=== PATIENT | female | born 1975 | race Caucasian/White ===

== ENCOUNTER 2022-09-06 16:13 | Outpatient (CLI) | payer BC ==
[2022-09-06 16:49] LABS: BHCG - Serum Negative (NEGATIVE); Hemoglobin 13.8 g/dL (12.0-15.5); Mean Corpuscular HGB CONC 33.8 g/dL (32.0-36.0); Mean Corpuscular Hemoglobin 31.9 pg (27.0-33.0); Mean Corpuscular Volume 94.4 fl (81.6-98.3); Mean Platelet Volume 9.4 fl (7.4-10.4); Platelet Count 308 10x3/uL (150-450); Pregs Control Background? CLEAR/WHITE (CLR/WHITE); Pregs Control Bar Appear? YES (CONTROL BAR); Red Blood Cell (RBC) Count 4.32 10x6/uL (3.90-5.03)
== END 2022-09-06 16:14 | disposition home or self-care (01) ==
LOC: CSHLAB 16:13
PROVIDERS: ATTEND Student in an Organized Health Care Education/Training Program
DX: Z01.812 Encounter for preprocedural laboratory examination (principal); D25.9 Leiomyoma of uterus, unspecified; N92.0 Excessive and frequent menstruation with regular cycle
CPT/HCPCS: 84703; 85027; 86850; 86900; 86901

== ENCOUNTER 2022-09-10 08:24 | Day surgery (SDC) | payer BC ==
[2022-09-09 10:02] VITALS: BMI 24.9
[2022-09-10] MEDS ORDERED: PROPOFOL 20 ML ONE (08:41)
[2022-09-10] MEDS ORDERED: Rocuronium Bromide 10 MG/ML (10ML VIAL) ONE (08:42)
[2022-09-10] MEDS ORDERED: Dexamethasone 4 mg/ml Vial ONE (08:42)
[2022-09-10] MEDS ORDERED: Ondansetron PF 4 MG/2 ML Vial ONE (08:42)
[2022-09-10] MEDS ORDERED: Fentanyl 250 MCG/5 ML VIAL ONE (08:42)
[2022-09-10] MEDS ORDERED: Lidocaine 1% PF 5 ML VIAL ONE (08:42)
[2022-09-10] MEDS ORDERED: Promethazine HCl 25 MG/ML VIAL ONE (08:50)
[2022-09-10] MEDS ORDERED: CeleCOXIB 100 MG CAP ONE (08:53)
[2022-09-10] MEDS ORDERED: Gabapentin 300 MG CAP ONE (08:54)
[2022-09-10] MEDS ORDERED: Famotidine/PF 20 mg/2ml Vial ONE (08:54)
[2022-09-10] MEDS ORDERED: metroNIDAZOLE 500 MG/100 ML BAG ONE (09:46)
[2022-09-10] MEDS ORDERED: CEFAZOLIN 2 GM VIAL ONE (10:24)
[2022-09-10] MEDS ORDERED: Midazolam HCl 2 mg/2 ml Vial ONE (10:37)
[2022-09-10] MEDS ORDERED: ePHEDrine Sulfate 50 MG/10 ML VIAL ONE (11:01)
[2022-09-10] MEDS ORDERED: Glycopyrrolate 0.2 MG/ML 5 ML SYRINGE ONE (12:08)
[2022-09-10] MEDS ORDERED: Meperidine HCl/PF 25 MG/ML VIAL ONE (12:55)
[2022-09-10] MEDS ORDERED: Ketorolac Tromethamine 30 MG/ML VIAL ONE (12:55)
[2022-09-10] MEDS ORDERED: HYDROcodone/Acetaminophen 5/325 mg Tablet ONE (14:43)
== END 2022-09-10 16:25 | disposition home or self-care (01) ==
LOC: CSHSDC 08:24
PROVIDERS: ATTEND Student in an Organized Health Care Education/Training Program
PROC: 0UT1FZZ Resection of Left Ovary, Via Natural or Artificial Opening With Percutaneous Endoscopic Assistance (ICD-10-PCS; principal; 2022-09-10)
PROC: 0UT9FZZ Resection of Uterus, Via Natural or Artificial Opening With Percutaneous Endoscopic Assistance (ICD-10-PCS; principal; 2022-09-10)
PROC: 0UT7FZZ Resection of Bilateral Fallopian Tubes, Via Natural or Artificial Opening With Percutaneous Endoscopic Assistance (ICD-10-PCS; principal; 2022-09-10)
DX: D25.9 Leiomyoma of uterus, unspecified (principal); N80.03 Adenomyosis of the uterus; D27.1 Benign neoplasm of left ovary; N92.0 Excessive and frequent menstruation with regular cycle; N83.8 Other noninflammatory disorders of ovary, fallopian tube and broad ligament; N93.9 Abnormal uterine and vaginal bleeding, unspecified; G89.18 Other acute postprocedural pain
CPT/HCPCS: 88307; J1100; J1885; J2175; J2250; J2405; J2550; J2704; J3010; S0028